=== PATIENT | male | born 2000 | race Caucasian/White ===

== ENCOUNTER 2018-07-04 23:25 | Emergency (ER) | payer OTHER ==
--- NOTE | 2018-07-05 02:58 | XR ---
EXAM: XR Soft Tissue Neck CLINICAL HISTORY: ITS.REASON XR Reason: Pain TECHNIQUE: Frontal and lateral views of the soft tissues of the neck. COMPARISON: No relevant prior studies available. FINDINGS: Airway: Unremarkable. No abnormal narrowing. Bones/joints: No acute fracture. No dislocation. Soft tissues: Unremarkable. No abnormal soft tissue prominence. Normal epiglottis. IMPRESSION: Unremarkable neck x-rays.
--- NOTE | 2018-07-05 03:39 | ED ---
General Adult HPI - General Source: patient, RN notes reviewed, old records reviewed Mode of arrival: ambulatory Limitations: no limitations <Adonis Dickey - Last Filed: 07/05/18 05:05> <Elizabeth Anna - Last Filed: 07/05/18 08:15> - General Chief complaint: ENT Stated complaint: Trouble Swallowing Time Seen by Provider: 07/05/18 02:01 - History of Present Illness Initial comments: 17-year-old male patient no pertinent past medical history presents to ED with approximately 3 weeks of sensation of things getting stuck with that while swallowing. Patient denies any pain. Patient has been able to tolerate by mouth intake and liquid. Patient denies any regurgitation. Patient denies any shortness of breath, difficulty breathing. Patient denies any abdominal pain, chest pain, shortness of breath. Patient denies other complaints. Systemic: Pt denies fatigue, myalgia, fever/chills, rash. Pt denies weakness, night sweats, weight loss. Neuro: Pt denies headache, visual disturbances, syncope or pre-syncope. HEENT: Pt denies ocular discharge or irritation, otalgia, rhinorrhea, pharyngitis or notable lymphadenopathy. Cardiopulmonary: Pt denies chest pain, SOB, heart palpitations, dyspnea on exertion. Abdominal/GI: Pt denies abdominal pain, n/v/d. : Pt denies dysuria, burning w/ urination, frequency/urgency. Denies new onset urinary or bowel incontinence. MSK: Pt denies myalgia, loss of strength or function in extremities. Neuro: Pt denies new onset weakness, paresthesias. (Adonis Dickey) - Related Data Previous Rx's Medication Instructions Recorded Loratadine [Alavert] 10 mg PO DAILY PRN #30 tab 05/18/15 Albuterol Inhaler [Ventolin Hfa 1 - 2 puff INHALATION Q4-6H PRN #1 02/17/16 Inhaler] inhaler Albuterol Inhaler [Ventolin Hfa 2 puff INHALATION Q6HR #1 inhaler 04/24/16 Inhaler] Azithromycin [Zithromax] 500 mg PO DAILY #3 tab 04/24/16 methylPREDNISolone Dose Pack 4 mg PO DIRECTED #21 package 04/24/16 [Medrol Dose Pack] Allergies Allergy/AdvReac Type Severity Reaction Status Date / Time No Known Allergies Allergy Verified 07/04/18 23:31 Review of Systems ROS Other: All systems not noted in ROS Statement are negative. <Adonis Dickey - Last Filed: 07/05/18 05:05> ROS Other: All systems not noted in ROS Statement are negative. <Elizabeth Anna - Last Filed: 07/05/18 08:15> ROS Statement: Those systems with pertinent positive or pertinent negative responses have been documented in the HPI. Past Medical History Past Medical History: Asthma Additional Past Medical History / Comment(s): hydrocephalus History of Any Multi-Drug Resistant Organisms: None Reported Past Surgical History: No Surgical Hx Reported Past Anesthesia/Blood Transfusion Reactions: No Reported Reaction Past Psychological History: No Psychological Hx Reported Smoking Status: Current some day smoker Past Alcohol Use History: None Reported Past Drug Use History: None Reported - Past Family History Mother Family Medical History: Asthma Additional Family Medical History / Comment(s): colitis, scoliosis, bipolar manic depressive, ADHD, anxiety <NobleAdonis Flynn - Last Filed: 07/05/18 05:05> General Exam Limitations: no limitations <NobleAdonis Flynn - Last Filed: 07/05/18 05:05> <Elizabeth Anna P - Last Filed: 07/05/18 08:15> - General Exam Comments Initial Comments: Constitutional: NAD, AOX3, Pt has pleasant affect. HEENT: NC/AT, trachea midline, neck supple, no lymphadenopathy. Posterior pharynx non erythematous, without exudates. External ears appear normal, without discharge. Mucous membranes moist. Eyes PERRLA, EOM intact. There is no scleral icterus. No pallor noted. Cardiopulmonary: RRR, no murmurs, rubs or gallops, no JVD noted. Lungs CTAB in anterior and posterior jaeger. No peripheral edema. Abdominal exam: Abdomen soft and non-distended. Abdomen non-tender to palpation in all 4 quadrants. Bowel sounds active in LLQ. No hepatosplenomegaly. No ecchymosis Neuro: CN II-XII grossly intact. No nuchal rigidity. MSK: No posterior calf tenderness bilaterally, homans sign negative bilaterally. Posterior tibialis and radial pulse +2 bilaterally. Sensation intact in upper and lower extremities. Full active ROM in upper and lower extremities, 5/5 stregnth. (Adonis Dickey) Vital Signs 07/04/18 07/05/18 23:28 03:46 Temperature 98.4 F 98.7 F Pulse Rate 68 69 Respiratory 16 17 Rate Blood Pressure 141/72 128/60 O2 Sat by Pulse 99 98 Oximetry Medical Decision Making <Adonis Dickey - Last Filed: 07/05/18 05:05> <Elizabeth Anna - Last Filed: 07/05/18 08:15> - Medical Decision Making 17-year-old male patient no pertinent past medical history presents to ED with approximately 3 weeks of sensation of things getting stuck with that while swallowing. Patient denies any pain. Patient has been able to tolerate by mouth intake and liquid. Patient denies any regurgitation. Patient denies any shortness of breath, difficulty breathing. Patient denies any abdominal pain, chest pain, shortness of breath. Patient denies other complaints. Pt VSS, afebrile. Physical exam didn't display acute pathology. Laboratory investigations revealed negative group A strep swab. Plain film of soft tissue neck did not display acute pathology. Patient able to tolerate by mouth intake in ED. Patient to follow up with ENT as well as PCP. Patient to return to ED if new signs or symptoms develop or if condition worsens in anyway. Case discussed with Dr. Anna. (Adonis Dickey) I was available for consultation in the emergency department. The history and physical exam were done by the midlevel provider. I was consulted for this patient's care. I reviewed the case with the midlevel provider and based on their presentation of the patient, I agree with the assessment, medical decision making and plan of care as documented. (Elizabeth Anna) - Lab Data Lab Results 07/05/18 Range/Units 02:00 Group A Strep Rapid Negative (Negative) Disposition Is patient prescribed a controlled substance at d/c from ED?: No <Adonis Dickey - Last Filed: 07/05/18 05:05> <Elizabeth Anna - Last Filed: 07/05/18 08:15> Clinical Impression: Throat discomfort Disposition: HOME SELF-CARE Condition: Stable Instructions (If sedation given, give patient instructions): Soft Diet (ED) Additional Instructions: Patient to adhere to previously discussed treatment plan and will take medication(s) as directed. Patient to follow up with PCP in 1-2 days. Patient to return to ED if symptoms do not improve. Please follow-up with primary care physician one to 2 days. Please call ear nose and throat specialists tomorrow. Patient return to ED if condition worsens in anyway. Referrals: Jamey Silva MD [Primary Care Provider] - 1-2 days Ace Causey MD [STAFF PHYSICIAN] - 1-2 days
[2018-07-05 03:51] VITALS: BP 128/60; PULSE 69; RESP 17; TEMP 98.7
== END 2018-07-05 03:47 | disposition home or self-care (01) ==
LOC: EC 23:25
DX: R09.89 Other specified symptoms and signs involving the circulatory and respiratory systems (principal); F17.200 Nicotine dependence, unspecified, uncomplicated
CPT/HCPCS: 70360; 87081; 87430; 99284

== ENCOUNTER 2021-06-10 13:38 | Emergency (ER) | payer OTHER ==
[2021-06-10 13:43] VITALS: BP 127/69; PULSE 61; RESP 20; TEMP 98.6
--- NOTE | 2021-06-10 14:17 | CT ---
EXAMINATION TYPE: CT brain wo con DATE OF EXAM: 06/10/2021 COMPARISON: None HISTORY: 20-year-old male HEADACHE TECHNIQUE: Examination was done in axial plane without intravenous contrast. Coronal and sagittal r econstructions performed. CT DLP: 1071.4 mGycm Automated exposure control for dose reduction was used. FINDINGS: There is no evidence of acute intracranial hemorrhage, acute ischemic changes, mass, mass-effect, or extra-axial fluid collection. There is no effacement of cerebral sulci or basal subarachnoid cister ns. There is no hydrocephalus. There is no midline shift. Julian-white matter distinction is preserv ed. Previous FESS. Residual moderate to severe mucosal thickening ethmoid air cells and mild within the s phenoid sinuses. Mastoid air cells are well pneumatized. Orbits and globes appear intact. IMPRESSION: 1. No acute intracranial abnormality seen. 2. Previous FESS but with residual moderate to severe mucosal thickening throughout the ethmoid air c ells and mild within the sphenoid sinuses.
--- NOTE | 2021-06-10 14:18 | ED ---
General Adult HPI - General Chief complaint: Headache Stated complaint: Headache/Dizziness Time Seen by Provider: 06/10/21 13:45 Source: patient, RN notes reviewed, old records reviewed Mode of arrival: ambulatory Limitations: no limitations - History of Present Illness Initial comments: 20-year-old male presenting for evaluation of headache , patient was seen by primary care physician and had laboratory testing performed. He continues to have a headache on the top of his head which is intermittent. He denies focal numbness or weakness. He states he was at a job interview earlier today and had an episode of blurry vision. This is resolved. No fever. No cough or URI symptoms. No vomiting or photophobia. - Related Data Previous Rx's Medication Instructions Recorded Loratadine [Alavert] 10 mg PO DAILY PRN #30 tab 05/18/15 Albuterol Inhaler (Mhu) [Ventolin 1 - 2 puff INHALATION Q4-6H PRN #1 02/17/16 Hfa Inhaler (Mhu)] inhaler Albuterol Inhaler (Mhu) [Ventolin 2 puff INHALATION Q6HR #1 inhaler 04/24/16 Hfa Inhaler] Azithromycin [Zithromax] 500 mg PO DAILY #3 tab 04/24/16 methylPREDNISolone Dose Pack 4 mg PO DIRECTED #21 package 04/24/16 [Medrol Dose Pack] Allergies Allergy/AdvReac Type Severity Reaction Status Date / Time No Known Allergies Allergy Verified 06/10/21 13:43 Review of Systems ROS Statement: Those systems with pertinent positive or pertinent negative responses have been documented in the HPI. ROS Other: All systems not noted in ROS Statement are negative. Past Medical History Past Medical History: Asthma Additional Past Medical History / Comment(s): hydrocephalus History of Any Multi-Drug Resistant Organisms: None Reported Past Surgical History: No Surgical Hx Reported Past Anesthesia/Blood Transfusion Reactions: No Reported Reaction Past Psychological History: No Psychological Hx Reported Smoking Status: Never smoker Past Alcohol Use History: None Reported Past Drug Use History: None Reported - Past Family History Mother Family Medical History: Asthma Additional Family Medical History / Comment(s): colitis, scoliosis, bipolar manic depressive, ADHD, anxiety General Exam Limitations: no limitations General appearance: alert, in no apparent distress Head exam: Present: atraumatic, normocephalic Eye exam: Present: normal appearance, PERRL, EOMI ENT exam: Present: normal exam Neck exam: Present: normal inspection. Absent: tenderness, meningismus Respiratory exam: Present: normal lung sounds bilaterally. Absent: respiratory distress, wheezes Cardiovascular Exam: Present: regular rate, normal rhythm GI/Abdominal exam: Present: soft. Absent: distended, tenderness, guarding Extremities exam: Present: normal inspection, normal capillary refill. Absent: pedal edema, calf tenderness Neurological exam: Present: alert, oriented X3, CN II-XII intact. Absent: motor sensory deficit Psychiatric exam: Present: normal affect, normal mood Skin exam: Present: warm, dry, intact. Absent: cyanosis, diaphoretic Course Vital Signs 06/10/21 13:41 Temperature 98.6 F Pulse Rate 61 Respiratory 20 Rate Blood Pressure 127/69 O2 Sat by Pulse 100 Oximetry Medical Decision Making - Medical Decision Making 20-year-old male presenting for evaluation of intermittent headache. Patient had a previous history of hydrocephalus. This was as a child. No other alarming features on history or physical exam. Patient well-appearing with a normal neurologic exam. I did perform CT imaging which is negative for acute intracranial process. I do recommend patient continue to follow up with his primary care physician and if symptoms persist he may require further imaging or evaluation by neurology. Disposition Clinical Impression: Headache Disposition: HOME SELF-CARE Condition: Good Instructions (If sedation given, give patient instructions): Acute Headache (ED) Additional Instructions: Please follow up with her primary care physician. If symptoms persist. Please follow up with neurology. Is patient prescribed a controlled substance at d/c from ED?: No Referrals: None,Stated [Primary Care Provider] - 1-2 days Yrn Muñoz MD [STAFF PHYSICIAN] - 1-2 days Time of Disposition:
== END 2021-06-10 14:47 | disposition home or self-care (01) ==
LOC: EC 13:38
DX: R51.9 Headache, unspecified (principal); J45.909 Unspecified asthma, uncomplicated; Z79.899 Other long term (current) drug therapy
CPT/HCPCS: 70450; 99284

== ENCOUNTER 2021-09-08 09:56 | Observation (INO) | payer OTHER ==
[2021-09-08] MEDS ORDERED: SODIUM CHLORIDE 0.9% 1,000 ML IV STA (10:29)
[2021-09-08] MEDS ORDERED: ONDANSETRON 4 MG/2 ML VIAL IVP STA (10:29)
--- NOTE | 2021-09-08 10:52 | ED ---
General Adult HPI - General Chief complaint: Abdominal Pain Stated complaint: abd pain Time Seen by Provider: 09/08/21 10:07 Source: patient Mode of arrival: ambulatory Limitations: no limitations - History of Present Illness Initial comments: This 21-year-old male presents emergency Department with generalized abdominal discomfort 2 weeks, radiating to right lower quadrant last night. Patient states over the last 2 weeks he has had generalized abdominal discomfort that seems to come and go. He states last night he began to experience sharp stabb ing pains in his right lower quadrant. He states his stabbing pain seemed to come and go but states there is always a dull aching pain in the area. Patient states when lying flat or touching his right lower quadrant seems worsen his pain. Patient states his pain is currently 6/10 but does get up to 8/10 when the aching pain becomes sharp. Patient states her last couple of days his stool has been harder than before, however he states he did have a bowel movement today that was normal. Patient denies any hematochezia or hemoptysis. Patient denies the pain radiating anywhere. He denies taking any pain medication to help his symptoms. Patient states he has had a decreased appetite over the last couple of weeks and states over the last 2 days he began to feel nauseous. He denies any vomiting, fever, diarrhea.Patient denies any chest pain, shortness of breath, change in bowel or bladder, back pain, change in vision, lightheadedness, dizziness, rash. Patient denies alcohol or drug use. - Related Data Home Medications Medication Instructions Recorded Confirmed No Known Home Medications 09/08/21 09/08/21 Allergies Allergy/AdvReac Type Severity Reaction Status Date / Time No Known Allergies Allergy Verified 09/08/21 10:38 Review of Systems ROS Statement: Those systems with pertinent positive or pertinent negative responses have been documented in the HPI. ROS Other: All systems not noted in ROS Statement are negative. Past Medical History Past Medical History: Asthma Additional Past Medical History / Comment(s): hydrocephalus History of Any Multi-Drug Resistant Organisms: None Reported Past Surgical History: No Surgical Hx Reported Past Anesthesia/Blood Transfusion Reactions: No Reported Reaction Past Psychological History: No Psychological Hx Reported Smoking Status: Vaper Past Alcohol Use History: Occasional Past Drug Use History: None Reported - Past Family History Mother Family Medical History: Asthma Additional Family Medical History / Comment(s): colitis, scoliosis, bipolar manic depressive, ADHD, anxiety General Exam Limitations: no limitations General appearance: alert, in no apparent distress Head exam: Present: atraumatic, normocephalic, normal inspection Eye exam: Present: normal appearance, PERRL, EOMI. Absent: scleral icterus, conjunctival injection, periorbital swelling Pupils: Present: normal accommodation ENT exam: Present: normal exam, mucous membranes moist Neck exam: Present: normal inspection, full ROM. Absent: tenderness, meningismus, lymphadenopathy Respiratory exam: Present: normal lung sounds bilaterally. Absent: respiratory distress, wheezes, rales, rhonchi, stridor, chest wall tenderness, decreased breath sounds Cardiovascular Exam: Present: regular rate, normal rhythm, normal heart sounds. Absent: systolic murmur, diastolic murmur, rubs, gallop, clicks GI/Abdominal exam: Present: soft, tenderness (Right lower quadrant tenderness to palpation. Positive McBurney's point, positive Rovsing sign, positive obturator sign. Negative Carlson sign.), normal bowel sounds. Absent: distended, guar ding, rebound, rigid Extremities exam: Present: normal inspection, full ROM, normal capillary refill. Absent: tenderness, pedal edema, joint swelling, calf tenderness Back exam: Present: normal inspection, full ROM. Absent: CVA tenderness (R), CVA tenderness (L), paraspinal tenderness, vertebral tenderness Neurological exam: Present: alert, oriented X3, CN II-XII intact Psychiatric exam: Present: normal affect, normal mood Skin exam: Present: warm, dry, intact, normal color. Absent: rash Course Vital Signs 09/08/21 09/08/21 10:00 11:42 Temperature 98.1 F Pulse Rate 55 L 76 Respiratory 22 18 Rate Blood Pressure 145/76 124/78 O2 Sat by Pulse 97 98 Oximetry Medical Decision Making - Medical Decision Making This 21-year-old male comes to the emergency department with acute appendicitis. Patient states he has had generalized abdominal discomfort over the last 2 weeks. He states right lower quadrant pain began last night. Patient states he has not eaten since before midnight last night. He states he did drink a little bit water around 8:00 AM. Patients labs with white blood cell count 12.8. Calcium 8.2, urine with trace blood. CT abdomen and pelvis with contrast impression: Prominent to the structure right lower quadrant measuring 8 mm with a thickened wall and very mild adjacent inflammatory changes are suspicious for early appendicitis. There is a small amount of free fluid in the pelvis. There is in attenuation which could represent partial volume averaging with collapse bowel. Cannot exclude a tiny phlegmon or abscess on the scan. Gallbladder hydrops with no definite gallstone. Spoke with who agreed to admit patient to his services. He requested I keep patient nothing by mouth. I did send patient on IV Zosyn. Patient readily agreed to be admitted to the hospital for further workup, evaluation and treatment. I did discuss surgery with the patient and he is agreeable to plan. Discussed case in detail my attending, . - Lab Data Result diagrams: 09/08/21 11:02 09/08/21 11:02 Lab Results 09/08/21 09/08/21 09/08/21 Range/Units 11:02 11:02 11:02 WBC 12.8 H (3.8-10.6) k/uL RBC 5.05 (4.30-5.90) m/uL Hgb 14.6 (13.0-17.5) gm/dL Hct 45.4 (39.0-53.0) % MCV 89.8 (80.0-100.0) fL MCH 28.8 (25.0-35.0) pg MCHC 32.1 (31.0-37.0) g/dL RDW 11.6 (11.5-15.5) % Plt Count 179 (150-450) k/uL MPV 8.1 Neutrophils % 82 % Lymphocytes % 9 % Monocytes % 5 % Eosinophils % 4 % Basophils % 1 % Neutrophils # 10.5 H (1.3-7.7) k/uL Lymphocytes # 1.1 (1.0-4.8) k/uL Monocytes # 0.6 (0-1.0) k/uL Eosinophils # 0.5 (0-0.7) k/uL Basophils # 0.1 (0-0.2) k/uL PT 11.3 (9.0-12.0) sec INR 1.0 (<1.2) APTT 26.7 (22.0-30.0) sec Sodium 139 (137-145) mmol/L Potassium 3.6 (3.5-5.1) mmol/L Chloride 108 H (98-107) mmol/L Carbon Dioxide 26 (22-30) mmol/L Anion Gap 5 mmol/L BUN 11 (9-20) mg/dL Creatinine 0.72 (0.66-1.25) mg/dL Est GFR (CKD-EPI)AfAm >90 (>60 ml/min/1.73 sqM) Est GFR (CKD-EPI)NonAf >90 (>60 ml/min/1.73 sqM) Glucose 87 (74-99) mg/dL Calcium 8.2 L (8.4-10.2) mg/dL Total Bilirubin 1.3 (0.2-1.3) mg/dL AST 21 (17-59) U/L ALT 15 (4-49) U/L Alkaline Phosphatase 66 (38-126) U/L Total Protein 7.2 (6.3-8.2) g/dL Albumin 4.1 (3.5-5.0) g/dL Amylase 64 (30-110) U/L Lipase 38 (23-300) U/L Urine Color Urine Appearance (Clear) Urine pH (5.0-8.0) Ur Specific [place] (1.001-1.035) Urine Protein (Negative) Urine Glucose (UA) (Negative) Urine Ketones (Negative) Urine Blood (Negative) Urine Nitrite (Negative) Urine Bilirubin (Negative) Urine Urobilinogen (<2.0) mg/dL Ur Leukocyte Esterase (Negative) Urine RBC (0-5) /hpf Urine WBC (0-5) /hpf Ur Squamous Epith Cells (0-4) /hpf Urine Mucus (None) /hpf 09/08/21 Range/Units 11:42 WBC (3.8-10.6) k/uL RBC (4.30-5.90) m/uL Hgb (13.0-17.5) gm/dL Hct (39.0-53.0) % MCV (80.0-100.0) fL MCH (25.0-35.0) pg MCHC (31.0-37.0) g/dL RDW (11.5-15.5) % Plt Count (150-450) k/uL MPV Neutrophils % % Lymphocytes % % Monocytes % % Eosinophils % % Basophils % % Neutrophils # (1.3-7.7) k/uL Lymphocytes # (1.0-4.8) k/uL Monocytes # (0-1.0) k/uL Eosinophils # (0-0.7) k/uL Basophils # (0-0.2) k/uL PT (9.0-12.0) sec INR (<1.2) APTT (22.0-30.0) sec Sodium (137-145) mmol/L Potassium (3.5-5.1) mmol/L Chloride (98-107) mmol/L Carbon Dioxide (22-30) mmol/L Anion Gap mmol/L BUN (9-20) mg/dL Creatinine (0.66-1.25) mg/dL Est GFR (CKD-EPI)AfAm (>60 ml/min/1.73 sqM) Est GFR (CKD-EPI)NonAf (>60 ml/min/1.73 sqM) Glucose (74-99) mg/dL Calcium (8.4-10.2) mg/dL Total Bilirubin (0.2-1.3) mg/dL AST (17-59) U/L ALT (4-49) U/L Alkaline Phosphatase (38-126) U/L Total Protein (6.3-8.2) g/dL Albumin (3.5-5.0) g/dL Amylase (30-110) U/L Lipase (23-300) U/L Urine Color Yellow Urine Appearance Clear (Clear) Urine pH 7.5 (5.0-8.0) Ur Specific [place] 1.020 (1.001-1.035) Urine Protein Negative (Negative) Urine Glucose (UA) Negative (Negative) Urine Ketones Negative (Negative) Urine Blood Trace H (Negative) Urine Nitrite Negative (Negative) Urine Bilirubin Negative (Negative) Urine Urobilinogen <2.0 (<2.0) mg/dL Ur Leukocyte Esterase Negative (Negative) Urine RBC 6 H (0-5) /hpf Urine WBC 1 (0-5) /hpf Ur Squamous Epith Cells <1 (0-4) /hpf Urine Mucus Rare H (None) /hpf Disposition Clinical Impression: Acute appendicitis, Leukocytosis Disposition: ADMITTED IP TO THIS [facility] Condition: Serious Referrals: None,Stated [Primary Care Provider] - 1-2 days
[2021-09-08 11:12] LABS: Basophils # (A) 0.1 k/uL (0-0.2); Basophils % (A) 1 %; Eosinophils # (A) 0.5 k/uL (0-0.7); Eosinophils % (A) 4 %; HCT 45.4 % (39.0-53.0); HGB 14.6 gm/dL (13.0-17.5); Lymphocytes # (A) 1.1 k/uL (1.0-4.8); Lymphocytes % (A) 9 %; MCH 28.8 pg (25.0-35.0); MCHC 32.1 g/dL (31.0-37.0); MCV 89.8 fL (80.0-100.0); Mean Platelet Volume 8.1; Monocytes # (A) 0.6 k/uL (0-1.0); Monocytes % (A) 5 %; Neutrophils # (A) 10.5 k/uL (1.3-7.7); Neutrophils % (A) 82 %; Platelet Count 179 k/uL (150-450); RBC 5.05 m/uL (4.30-5.90); RDW 11.6 % (11.5-15.5); WBC 12.8 k/uL (3.8-10.6)
[2021-09-08 11:20] LABS: ALT 15 U/L (4-49); AST 21 U/L (17-59); African American GFR (CKD) >90 (>60 ml/min/1.73 sqM); Albumin 4.1 g/dL (3.5-5.0); Alkaline Phosphatase 66 U/L (38-126); Amylase 64 U/L (30-110); Anion Gap 5 mmol/L; Blood Urea Nitrogen 11 mg/dL (9-20); Calcium 8.2 mg/dL (8.4-10.2); Carbon Dioxide 26 mmol/L (22-30); Chloride 108 mmol/L (98-107); Glucose 87 mg/dL (74-99); Lipase 38 U/L (23-300); Non-African American GFR(CKD) >90 (>60 ml/min/1.73 sqM); Potassium 3.6 mmol/L (3.5-5.1); Sodium 139 mmol/L (137-145); Total Bilirubin 1.3 mg/dL (0.2-1.3); Total Protein 7.2 g/dL (6.3-8.2)
[2021-09-08 11:37] LABS: Partial Thromboplastin Time 26.7 sec (22.0-30.0); Prothrombin Time 11.3 sec (9.0-12.0)
[2021-09-08 12:17] LABS: Appearance,Urine Clear (Clear); Bilirubin,Urine Negative (Negative); Blood,Urine Trace (Negative); Color,Urine Yellow; Glucose,Urine (UA) Negative (Negative); Ketones,Urine Negative (Negative); Leukocyte Esterase,Urine Negative (Negative); Mucus,Urine Rare /hpf; Nitrite,Urine Negative (Negative); PH, Urine 7.5 (5.0-8.0); Protein,Urine Negative (Negative); RBC,Urine 6 /hpf (0-5); Squamous Epithelial Cell,Urine <1 /hpf (0-4); Urobilinogen,Urine <2.0 mg/dL (<2.0); WBC,Urine 1 /hpf (0-5)
--- NOTE | 2021-09-08 12:27 | CT ---
EXAMINATION TYPE: CT abdomen pelvis w con DATE OF EXAM: 09/08/2021 COMPARISON: None HISTORY: RLQ abdominal pain and nausea. CT DLP: 573.1 mGycm Automated exposure control for dose reduction was used. CONTRAST: CT scan of the abdomen pelvis is performed with IV Contrast, patient injected with 100ml mL of Isovue 300. FINDINGS- LUNG BASES- No significant abnormality is appreciated. LIVER/GB-gallbladder size correlate for gallbladder hydrops.. PANCREAS- No gross abnormality is seen. SPLEEN- No gross abnormality is seen. ADRENALS- No gross abnormality is seen. KIDNEYS/BLADDER- no hydronephrosis nephrolithiasis or renal mass. BOWEL-prominent tubular structure in the right lower quadrant measuring 8 mm suspicious for a dilated appendix. Correlate for appendicitis. Vague density on axial image 59 likely represents partial volu me averaging with bowel rather than phlegmon or a tiny developing abscess. There is no definite free air. There is a small amount of free fluid in the pelvis.. LYMPH NODES- No greater than 1cm abdominal or pelvic lymph nodes areappreciated. OSSEOUS STRUCTURES- No significant abnormality is seen. OTHER- small amount of free fluid in the pelvis. Calcifications in the pelvis are likely vascular. IMPRESSION- 1. Prominent tubular structure right lower quadrant measuring 8 mm with a thickened wall and very mil d adjacent inflammatory changes are suspicious for early appendicitis. There is a small amount of marcello e fluid in the pelvis. On image 59 there is a next attenuation which could represent partial volume a veraging with collapsed bowel. Could not exclude a tiny phlegmon or abscess on this scan. 2. Gallbladder hydrops with no definite gallstone.
[2021-09-08] MEDS ORDERED: ACETAMINOPHEN TAB 325 MG TAB PO PRN (12:44)
[2021-09-08] MEDS ORDERED: MORPHINE SULFATE 2 MG/ML SYRINGE IV PRN (12:44)
[2021-09-08] MEDS ORDERED: NALOXONE 0.4 MG/ML 1 ML VIAL IV PRN (12:44)
[2021-09-08] MEDS ORDERED: ONDANSETRON 4 MG/2 ML VIAL IVP PRN (12:44)
[2021-09-08] MEDS ORDERED: PIPERACILLIN-TAZOBACTAM 3.375 GM in SODIUM CHLORIDE 0.9% 100 ML IVPB SCH (12:45)
[2021-09-08] MEDS ORDERED: PIPERACILLIN-TAZOBACTAM 3.375 GM in SODIUM CHLORIDE 0.9% 100 ML IVPB ONE (12:45)
--- NOTE | 2021-09-08 13:37 | P.GSHP ---
History of Present Illness H&P Date: 09/08/21 CHIEF COMPLAINT: Abdominal pain HISTORY OF PRESENT ILLNESS: This is a 21-year-old male who presented with right lower quadrant abdominal pain that started yesterday evening. Patient reports that he had difficulty sleeping he kept waking up due to the sharp pain in the right lower quadrant. He admits to having nausea and no vomiting. Patient does report the pain has been intermittent. He reports that the pain has decreased greatly since coming into the ER. Patient does report having bowel movements. He states that he had no relief in his pain with the bowel movement. He denies any fever. Admits to chills. Computed tomography scan abdomen and pelvis shows prominent tubular structure right lower quadrant measuring 8 mm with a thickened wall and very mild adjacent inflammatory changes are suspicious for early appendicitis. There is a small amount of free fluid in the pelvis. Attenuation which could represent partial volume averaging with collapse bowel. Cannot exclude tiny phlegmon or abscess on the scan. Patient also reports feeling slightly bloated. PAST MEDICAL HISTORY: Asthma, hydrocephalus PAST SURGICAL HISTORY: none MEDICATIONS: See list. ALLERGIES: See list. SOCIAL HISTORY: No illicit drug use. REVIEW OF SYSTEMS: CONSTITUTIONAL: Denies fever or chills. HEENT: Denies blurred vision, vision changes, or eye pain. Denies hemoptysis CARDIOVASCULAR: Denies chest pain or pressure. RESPIRATORY: No shortness of breath. GASTROINTESTINAL: See HPI for pertinent findings HEMATOLOGIC: Denies bleeding disorders. GENITOURINARY: Denies any blood in urine or increased urinary frequency. SKIN: Denies pruitis. Denies rash. PHYSICAL EXAM: VITAL SIGNS: Reviewed GENERAL: Well-developed in no acute distress. HEENT: No sclera icterus. Extraocular movements grossly intact. Moist buccal mucosa. Head is atraumatic, normocephalic. No nasal drainage. ABDOMEN: Soft. Distended. Right lower quadrant tenderness with palpation NEUROLOGIC: Alert and oriented. Cranial nerves II through XII grossly intact. LABORATORY DATA: WBC 12.8 hemoglobin 14.6 platelets 179 INR 1.0 Sodium 19 potassium 3.6 creatinine 0.7 to LFTs normal lipase 38 IMAGING: Computed tomography scan abdomen and pelvis shows prominent tubular structure right lower quadrant measuring 8 mm with a thickened wall and very mild adjacent inflammatory changes are suspicious for early appendicitis. There is a small amount of free fluid in the pelvis. Attenuation which could represent partial volume averaging with collapse bowel. Cannot exclude tiny phlegmon or abscess on the scan. Gallbladder hydrops with no definite gallstone ASSESSMENT: 1. Acute appendicitis PLAN: -Patient scheduled for laparoscopic appendectomy today with Dr. martinez -Keep patient nothing by mouth -Continue IV antibiotics -continue pain medication as needed Physician Transmitter Supervisor note has been reviewed by physician. Signing provider agrees with the documented findings, assessment, and plan of care. Past Medical History Past Medical History: Asthma Additional Past Medical History / Comment(s): hydrocephalus History of Any Multi-Drug Resistant Organisms: None Reported Past Surgical History: No Surgical Hx Reported Past Anesthesia/Blood Transfusion Reactions: No Reported Reaction Past Psychological History: No Psychological Hx Reported Smoking Status: Vaper Past Alcohol Use History: Occasional Past Drug Use History: None Reported - Past Family History Mother Family Medical History: Asthma Additional Family Medical History / Comment(s): colitis, scoliosis, bipolar ma rochelle depressive, ADHD, anxiety Medications and Allergies Home Medications Medication Instructions Recorded Confirmed Type No Known Home Medications 09/08/21 09/08/21 History Allergies Allergy/AdvReac Type Severity Reaction Status Date / Time No Known Allergies Allergy Verified 09/08/21 10:38 Surgical - Exam Vital Signs Temp Pulse Resp BP Pulse Ox 98.1 F 55 L 22 145/76 97 09/08/21 10:00 09/08/21 10:00 09/08/21 10:00 09/08/21 10:00 09/08/21 10:00 Results - Labs 09/08/21 11:02 09/08/21 11:02 Abnormal Lab Results - Last 24 Hours (Table) 09/08/21 09/08/21 09/08/21 Range/Units 11:02 11:02 11:42 WBC 12.8 H (3.8-10.6) k/uL Neutrophils # 10.5 H (1.3-7.7) k/uL Chloride 108 H (98-107) mmol/L Calcium 8.2 L (8.4-10.2) mg/dL Urine Blood Trace H (Negative) Urine RBC 6 H (0-5) /hpf Urine Mucus Rare H (None) /hpf Diabetes panel 09/08/21 Range/Units 11:02 Sodium 139 (137-145) mmol/L Potassium 3.6 (3.5-5.1) mmol/L Chloride 108 H (98-107) mmol/L Carbon Dioxide 26 (22-30) mmol/L BUN 11 (9-20) mg/dL Creatinine 0.72 (0.66-1.25) mg/dL Glucose 87 (74-99) mg/dL Calcium 8.2 L (8.4-10.2) mg/dL AST 21 (17-59) U/L ALT 15 (4-49) U/L Alkaline Phosphatase 66 (38-126) U/L Total Protein 7.2 (6.3-8.2) g/dL Albumin 4.1 (3.5-5.0) g/dL Calcium panel 09/08/21 Range/Units 11:02 Calcium 8.2 L (8.4-10.2) mg/dL Albumin 4.1 (3.5-5.0) g/dL Pituitary panel 09/08/21 Range/Units 11:02 Sodium 139 (137-145) mmol/L Potassium 3.6 (3.5-5.1) mmol/L Chloride 108 H (98-107) mmol/L Carbon Dioxide 26 (22-30) mmol/L BUN 11 (9-20) mg/dL Creatinine 0.72 (0.66-1.25) mg/dL Glucose 87 (74-99) mg/dL Calcium 8.2 L (8.4-10.2) mg/dL Adrenal panel 09/08/21 Range/Units 11:02 Sodium 139 (137-145) mmol/L Potassium 3.6 (3.5-5.1) mmol/L Chloride 108 H (98-107) mmol/L Carbon Dioxide 26 (22-30) mmol/L BUN 11 (9-20) mg/dL Creatinine 0.72 (0.66-1.25) mg/dL Glucose 87 (74-99) mg/dL Calcium 8.2 L (8.4-10.2) mg/dL Total Bilirubin 1.3 (0.2-1.3) mg/dL AST 21 (17-59) U/L ALT 15 (4-49) U/L Alkaline Phosphatase 66 (38-126) U/L Total Protein 7.2 (6.3-8.2) g/dL Albumin 4.1 (3.5-5.0) g/dL
[2021-09-08] MEDS: SODIUM CHLORIDE 0.9% 1,000 ML IV SCH ×2 (14:23→22:07)
[2021-09-08] MEDS ORDERED: LACTATED RINGERS 1,000 ML IV ONE ×2 (16:45→18:28)
[2021-09-08] MEDS ORDERED: IV FLUID CONTINUATION 1,000 ML IV ONE (16:45)
[2021-09-08] MEDS ORDERED: HEPARIN SODIUM,PORCINE/PF 5,000 UNIT/0.5 ML SYRINGE SQ ONE (16:56)
[2021-09-08] MEDS ORDERED: ONDANSETRON 4 MG/2 ML VIAL IVP ONE (17:06)
[2021-09-08] MEDS ORDERED: BUPIVACAIN-EPI 0.25%-1:200,000 30 ML VIAL SQ ONE ×2 (17:38→18:27)
[2021-09-08] MEDS ORDERED: SUCCINYLCHOLINE CHLORIDE 100 MG/5 ML SYR IV ONE (18:07)
[2021-09-08] MEDS ORDERED: GLYCOPYRROLATE 0.2 MG/ML 2 ML VIAL ONE (18:07)
[2021-09-08] MEDS ORDERED: ROCURONIUM 10 MG/ML (5 ML VIAL) IV ONE (18:07)
[2021-09-08] MEDS ORDERED: PROPOFOL 10 MG/ML 20 ML VIAL IV ONE (18:07)
[2021-09-08] MEDS ORDERED: KETOROLAC 15 MG/ML 1 ML VIAL ONE (18:07)
[2021-09-08] MEDS ORDERED: MIDAZOLAM 2 MG/2 ML VIAL ONE (18:07)
[2021-09-08] MEDS ORDERED: fentaNYL (PF) 50 MCG/ML 2 ML AMP ONE (18:07)
[2021-09-08] MEDS ORDERED: NEOSTIGMINE 1 MG/ML 10 ML VIAL ONE (18:07)
[2021-09-08] MEDS ORDERED: LIDOCAINE 2% INJ 20 MG/ML (2 ML VIAL) ONE (18:07)
[2021-09-08] MEDS ORDERED: HYDROmorphone 1 MG/ML 1 ML SYRINGE IVP PRN (18:35)
[2021-09-08] MEDS ORDERED: ONDANSETRON 4 MG TAB PO PRN (18:35)
--- NOTE | 2021-09-08 18:35 | P.OP ---
Date of Procedure: 09/08/21 Preoperative Diagnosis: Acute appendicitis Postoperative Diagnosis: Acute appendicitis Procedure(s) Performed: Laparoscopic appendectomy Anesthesia: LUI Surgeon: Zbigniew Marquez Pathology: other (Appendix) Condition: stable Disposition: PACU Description of Procedure: The patient's placed on the operating table in the supine position. The patient received general anesthesia. The abdomen was prepped and draped in the usual sterile fashion. The skin was anesthetized 1% local Xylocaine at the trocar sites. Using an 11 blade the skin was incised at the umbilicus. The umbilicus was grasped with a Beth clamp and then a Veress needle was placed into the peritoneal cavity. Position of the Veress needle was confirmed with positive drop test. After adequate insufflation a 5 mm trocar was placed into the peritoneal cavity. The abdomen was further insufflated. And then the laparoscope was placed in the peritoneal cavity. Next a 5 mm trocar was placed in the midline suprapubic position. And then a 10 mm trocar was placed in the midline epigastric position. The patient was rotated with the right side up and in Trendelenburg. The appendix was visualized. The appendix appeared to be inflamed. The appendix was grasped and then using the Harmonic scissors the mesoappendix was divided. A PDS Endoloop was then placed around the base of the appendix. And then the appendix was divided using Harmonic scissors. The appendix was placed into an Endo Catch and brought out through the 10 mm trocar site. The abdomen was irrigated. There is no bleeding seen. The trochars withdrawn. The skin was closed interrupted 3-0 Monocryl suture. Dermabond dressing was applied. Patient was sent to recovery room in stable condition.
[2021-09-08] MEDS ORDERED: HYDROmorphone 0.5 MG/0.5 ML SYRINGE IVP ONE (19:09)
[2021-09-08] MEDS ORDERED: HYDROmorphone 1 MG/ML 1 ML SYRINGE IVP ONE (19:10)
[2021-09-08] MEDS: PIPERACILLIN-TAZOBACTAM 3.375 GM in SODIUM CHLORIDE 0.9% 100 ML IVPB SCH (22:07)
[2021-09-09] MEDS: SODIUM CHLORIDE 0.9% 1,000 ML IV SCH ×2 (04:31→13:31)
[2021-09-09] MEDS: PIPERACILLIN-TAZOBACTAM 3.375 GM in SODIUM CHLORIDE 0.9% 100 ML IVPB SCH ×2 (05:14→13:31)
[2021-09-09] MEDS: HYDROcodone/APAP 7.5-325MG 1 EACH TAB PO PRN ×2 (08:59→14:55)
[2021-09-09] MEDS ORDERED: ENOXAPARIN 40 MG/0.4 ML SYRINGE SQ SCH (09:00)
[2021-09-09 11:05] LABS: Basophils % (A) 0 %; Eosinophils # (A) 0.4 k/uL (0-0.7); Eosinophils % (A) 5 %; HCT 44.2 % (39.0-53.0); HGB 14.4 gm/dL (13.0-17.5); Lymphocytes # (A) 1.2 k/uL (1.0-4.8); Lymphocytes % (A) 15 %; MCH 29.8 pg (25.0-35.0); MCHC 32.7 g/dL (31.0-37.0); MCV 91.1 fL (80.0-100.0); Mean Platelet Volume 8.1; Monocytes # (A) 0.5 k/uL (0-1.0); Monocytes % (A) 7 %; Neutrophils # (A) 5.8 k/uL (1.3-7.7); Neutrophils % (A) 72 %; Platelet Count 194 k/uL (150-450); RBC 4.85 m/uL (4.30-5.90); RDW 12.4 % (11.5-15.5)
--- NOTE | 2021-09-09 14:08 | P.DS ---
Providers Date of admission: 09/08/21 12:33 Expected date of discharge: 09/09/21 Attending physician: Zbigniew Maruqez Primary care physician: Stated None Hospital Course: Discharge diagnosis 1. Acute appendicitis status post laparoscopic appendectomy Hospital course This is a 21-year-old male who presented with right lower quadrant abdominal pain. He was found to have evidence of an acute appendicitis. He is status post laparoscopic appendectomy. He tolerated surgery well. His pain is controlled. He is up and ambulating. His heart regular diet. He is having flatus. He is afebrile. He is stable for discharge. Please refer to chart for any further details. Physician Nozzle Tender note has been reviewed by physician. Signing provider agrees with the documented findings, assessment, and plan of care. Patient Condition at Discharge: Stable Plan - Discharge Summary New Discharge Prescriptions: New Amoxicillin/Potassium Clav [Augmentin 875-125 Tablet] 1 tab PO Q12HR 10 Days #20 tab HYDROcodone/APAP 5-325MG [[place] 5-325] 1 tab PO Q6HR PRN 3 Days #12 tab PRN Reason: Pain Discharge Medication List Amoxicillin/Potassium Clav [Augmentin 875-125 Tablet] 1 tab PO Q12HR 10 Days #20 tab 09/09/21 [Rx] HYDROcodone/APAP 5-325MG [[place] 5-325] 1 tab PO Q6HR PRN 3 Days #12 tab 09/09/21 [Rx] Follow up Appointment(s)/Referral(s): None,Stated [Primary Care Provider] - 1-2 days Zbigniew Marquez MD [STAFF PHYSICIAN] - 1 Week Activity/Diet/Wound Care/Special Instructions: No driving while taking [place] No lifting over 10 pounds Shower daily. No soaking or tub baths for 2 weeks Very light activity until you are reevaluated at your follow up appointment with your surgeon Discharge Disposition: HOME SELF-CARE
[2021-09-09 14:32] VITALS: BP 124/65; PULSE 70; RESP 15; TEMP 98.3
== END 2021-09-09 15:18 | disposition home or self-care (01) ==
LOC: EC 09:56 → 6NMEDSUR 12:33
PROVIDERS: ADMIT Surgery; ATTEND Surgery
DX: K35.80 Unspecified acute appendicitis (principal); K82.1 Hydrops of gallbladder; J45.909 Unspecified asthma, uncomplicated; G91.9 Hydrocephalus, unspecified; Z82.5 Family history of asthma and other chronic lower respiratory diseases; Z81.8 Family history of other mental and behavioral disorders; Z83.79 Family history of other diseases of the digestive system; Z82.69 Family history of other diseases of the musculoskeletal system and connective tissue
CPT/HCPCS: 96361; 96374; 99285; 36415; 88304; 80053; 82150; 83605; 83690; 85025 ×2; 85610; 85730; 81001; 74177; 44970; G0378 ×2; J2543 ×2; J2250; J2710; J2405; J1650; J3010; J2270; J1170 ×3; J1885; J0330; J2704; Q9967; J1644; J2001

== ENCOUNTER 2021-09-11 04:57 | Emergency (ER) | payer OTHER ==
[2021-09-11 05:03] VITALS: TEMP 97.6
[2021-09-11] MEDS ORDERED: MORPHINE SULFATE 4 MG/ML SYRINGE IV STA (05:15)
[2021-09-11] MEDS ORDERED: ONDANSETRON 4 MG/2 ML VIAL IVP STA (05:15)
[2021-09-11] MEDS ORDERED: KETOROLAC 15 MG/ML 1 ML VIAL IVP STA (05:15)
[2021-09-11] MEDS ORDERED: SODIUM CHLORIDE 0.9% 1,000 ML IV STA ×2 (05:15)
[2021-09-11] MEDS ORDERED: ACETAMINOPHEN IV (For NPO) 1,000 MG in EMPTY BAG 1 BAG IVPB STA (05:15)
--- NOTE | 2021-09-11 05:16 | ED ---
Fever HPI - General Chief Complaint: Recheck/Abnormal Lab/Rx Stated Complaint: Post-op chills, nausea Source: patient, RN notes reviewed, old records reviewed Mode of arrival: ambulatory Limitations: no limitations - History of Present Illness Initial Comments: this is a 21-year-old male DF for evaluation patient today presents today for evaluation regards to re-eval postoperative appendicitis. Patient feels abdominal pain tingling in his lower extremities tingling in his belly. Mild nausea no vomiting diffuse does not feel exactly well. Patient has felt feverish and chills but has no documented fever. He has not been passing stool and feels like he's been eating well. He is passing gas.after MD Complaint: fever, weakness -: hour(s) Temperature Source: subjective Context: recent procedure Associated Symptoms: chills, myalgias, abdominal pain, nausea Treatments Prior to Arrival: none - Related Data Previous Rx's Medication Instructions Recorded Amoxicillin/Potassium Clav 1 tab PO Q12HR 10 Days #20 tab 09/09/21 [Augmentin 875-125 Tablet] HYDROcodone/APAP 5-325MG [[place] 1 tab PO Q6HR PRN 3 Days #12 tab 09/09/21 5-325] Allergies Allergy/AdvReac Type Severity Reaction Status Date / Time No Known Allergies Allergy Verified 09/11/21 05:03 Review of Systems ROS Statement: Those systems with pertinent positive or pertinent negative responses have been documented in the HPI. ROS Other: All systems not noted in ROS Statement are negative. Past Medical History Past Medical History: Asthma Additional Past Medical History / Comment(s): hydrocephalus History of Any Multi-Drug Resistant Organisms: None Reported Past Surgical History: Appendectomy Additional Past Surgical History / Comment(s): Septoplasty Past Anesthesia/Blood Transfusion Reactions: No Reported Reaction Past Psychological History: No Psychological Hx Reported Smoking Status: Vaper Past Alcohol Use History: Occasional Past Drug Use History: None Reported - Past Family History Mother Family Medical History: Asthma Additional Family Medical History / Comment(s): colitis, scoliosis, bipolar manic depressive, ADHD, anxiety General Exam Limitations: no limitations General appearance: alert, in no apparent distress Head exam: Present: atraumatic, normocephalic, normal inspection Eye exam: Present: normal appearance, PERRL, EOMI. Absent: scleral icterus, conjunctival injection, periorbital swelling ENT exam: Present: normal exam, mucous membranes moist Neck exam: Present: normal inspection. Absent: tenderness, meningismus, lymphadenopathy Respiratory exam: Present: normal lung sounds bilaterally. Absent: respiratory distress, wheezes, rales, rhonchi, stridor Cardiovascular Exam: Present: regular rate, normal rhythm, normal heart sounds. Absent: systolic murmur, diastolic murmur, rubs, gallop, clicks GI/Abdominal exam: Present: soft, normal bowel sounds. Absent: distended, tenderness, guarding, rebound, rigid Extremities exam: Present: normal inspection, full ROM, normal capillary refill. Absent: tenderness, pedal edema, joint swelling, calf tenderness Back exam: Present: normal inspection Neurological exam: Present: alert, oriented X3, CN II-XII intact Psychiatric exam: Present: normal affect, normal mood Skin exam: Present: warm, dry, intact, normal color. Absent: rash Course Vital Signs 09/11/21 09/11/21 05:00 06:32 Temperature 97.6 F Pulse Rate 64 61 Respiratory 18 16 Rate Blood Pressure 116/73 114/71 O2 Sat by Pulse 98 100 Oximetry - Reevaluation(s) Reevaluation #1: 09/11/21 06:10 Medical record is reviewed Reevaluation #2: 09/11/21 06:10 Patient symptoms are resolved Reevaluation #3: 09/11/21 06:52 Patient informed of results and questions answered Reevaluation #4: 09/11/21 06:52 Patient reassured continues to feel improved here in the ER Medical Decision Making - Medical Decision Making 18 female DEL with. Symptoms. No real specific pain just not feeling normal. Patient will try stool softener for bowel movements continue diet lab values are normal computed tomography scan is normal patient can be discharged home - Lab Data Result diagrams: 09/11/21 05:36 09/11/21 05:36 Lab Results 09/11/21 09/11/21 09/11/21 Range/Units 05:36 05:36 05:36 WBC 6.7 (3.8-10.6) k/uL RBC 4.75 (4.30-5.90) m/uL Hgb 14.2 (13.0-17.5) gm/dL Hct 42.3 (39.0-53.0) % MCV 89.1 (80.0-100.0) fL MCH 29.9 (25.0-35.0) pg MCHC 33.5 (31.0-37.0) g/dL RDW 12.0 (11.5-15.5) % Plt Count 195 (150-450) k/uL MPV 8.0 Neutrophils % 45 % Lymphocytes % 37 % Monocytes % 7 % Eosinophils % 7 % Basophils % 1 % Neutrophils # 3.0 (1.3-7.7) k/uL Lymphocytes # 2.5 (1.0-4.8) k/uL Monocytes # 0.5 (0-1.0) k/uL Eosinophils # 0.5 (0-0.7) k/uL Basophils # 0.0 (0-0.2) k/uL Sodium 138 (137-145) mmol/L Potassium 3.7 (3.5-5.1) mmol/L Chloride 103 (98-107) mmol/L Carbon Dioxide 27 (22-30) mmol/L Anion Gap 8 mmol/L BUN 12 (9-20) mg/dL Creatinine 0.79 (0.66-1.25) mg/dL Est GFR (CKD-EPI)AfAm >90 (>60 ml/min/1.73 sqM) Est GFR (CKD-EPI)NonAf >90 (>60 ml/min/1.73 sqM) Glucose 101 H (74-99) mg/dL Plasma Lactic Acid Sonny 1.3 (0.7-2.0) mmol/L Calcium 9.1 (8.4-10.2) mg/dL Total Bilirubin 0.5 (0.2-1.3) mg/dL AST 20 (17-59) U/L ALT 13 (4-49) U/L Alkaline Phosphatase 53 (38-126) U/L Total Protein 7.1 (6.3-8.2) g/dL Albumin 4.0 (3.5-5.0) g/dL Amylase 57 (30-110) U/L Lipase 51 (23-300) U/L Influenza Type A (PCR) (Not Detectd) Influenza Type B (PCR) (Not Detectd) RSV (PCR) (Not Detectd) SARS-CoV-2 (PCR) (Not Detectd) 09/11/21 Range/Units 05:36 WBC (3.8-10.6) k/uL RBC (4.30-5.90) m/uL Hgb (13.0-17.5) gm/dL Hct (39.0-53.0) % MCV (80.0-100.0) fL MCH (25.0-35.0) pg MCHC (31.0-37.0) g/dL RDW (11.5-15.5) % Plt Count (150-450) k/uL MPV Neutrophils % % Lymphocytes % % Monocytes % % Eosinophils % % Basophils % % Neutrophils # (1.3-7.7) k/uL Lymphocytes # (1.0-4.8) k/uL Monocytes # (0-1.0) k/uL Eosinophils # (0-0.7) k/uL Basophils # (0-0.2) k/uL Sodium (137-145) mmol/L Potassium (3.5-5.1) mmol/L Chloride (98-107) mmol/L Carbon Dioxide (22-30) mmol/L Anion Gap mmol/L BUN (9-20) mg/dL Creatinine (0.66-1.25) mg/dL Est GFR (CKD-EPI)AfAm (>60 ml/min/1.73 sqM) Est GFR (CKD-EPI)NonAf (>60 ml/min/1.73 sqM) Glucose (74-99) mg/dL Plasma Lactic Acid Sonny (0.7-2.0) mmol/L Calcium (8.4-10.2) mg/dL Total Bilirubin (0.2-1.3) mg/dL AST (17-59) U/L ALT (4-49) U/L Alkaline Phosphatase (38-126) U/L Total Protein (6.3-8.2) g/dL Albumin (3.5-5.0) g/dL Amylase (30-110) U/L Lipase (23-300) U/L Influenza Type A (PCR) Not Detected (Not Detectd) Influenza Type B (PCR) Not Detected (Not Detectd) RSV (PCR) Not Detected (Not Detectd) SARS-CoV-2 (PCR) Not Detected (Not Detectd) - Radiology Data Radiology results: report reviewed (Chest x-ray and CT abdomen and pelvis are negative for acute disease), image reviewed Disposition Clinical Impression: Postoperative pain Disposition: HOME SELF-CARE Condition: Good Instructions (If sedation given, give patient instructions): Pain Management After Surgery (DC) Is patient prescribed a controlled substance at d/c from ED?: No Referrals: None,Stated [Primary Care Provider] - 1-2 days
[2021-09-11 06:04] LABS: Basophils % (A) 1 %; Eosinophils # (A) 0.5 k/uL (0-0.7); Eosinophils % (A) 7 %; HCT 42.3 % (39.0-53.0); HGB 14.2 gm/dL (13.0-17.5); Lymphocytes # (A) 2.5 k/uL (1.0-4.8); Lymphocytes % (A) 37 %; MCH 29.9 pg (25.0-35.0); MCHC 33.5 g/dL (31.0-37.0); MCV 89.1 fL (80.0-100.0); Monocytes # (A) 0.5 k/uL (0-1.0); Monocytes % (A) 7 %; Neutrophils % (A) 45 %; Platelet Count 195 k/uL (150-450); RBC 4.75 m/uL (4.30-5.90); WBC 6.7 k/uL (3.8-10.6)
[2021-09-11 06:21] LABS: ALT 13 U/L (4-49); AST 20 U/L (17-59); African American GFR (CKD) >90 (>60 ml/min/1.73 sqM); Alkaline Phosphatase 53 U/L (38-126); Amylase 57 U/L (30-110); Anion Gap 8 mmol/L; Blood Urea Nitrogen 12 mg/dL (9-20); Calcium 9.1 mg/dL (8.4-10.2); Carbon Dioxide 27 mmol/L (22-30); Chloride 103 mmol/L (98-107); Glucose 101 mg/dL (74-99); Lipase 51 U/L (23-300); Non-African American GFR(CKD) >90 (>60 ml/min/1.73 sqM); Potassium 3.7 mmol/L (3.5-5.1); Sodium 138 mmol/L (137-145); Total Bilirubin 0.5 mg/dL (0.2-1.3); Total Protein 7.1 g/dL (6.3-8.2)
--- NOTE | 2021-09-11 06:24 | XR ---
EXAMINATION TYPE: XR chest 1V portable DATE OF EXAM: 09/11/2021 COMPARISON: 04/24/1962 HISTORY: Abdominal pain TECHNIQUE: FINDINGS: Heart and mediastinum are normal. Lungs are clear. Diaphragm is normal. Bony thorax appears normal. IMPRESSION: Normal chest. No change
--- NOTE | 2021-09-11 06:31 | CT ---
EXAMINATION TYPE: CT abdomen pelvis w con DATE OF EXAM: 09/11/2021 COMPARISON: 09/08/2021 HISTORY: post op appendectomy x3days ago. woke up with burning sensation in thighs, + fever, + chills CT DLP: 699.4 mGycm Automated exposure control for dose reduction was used. CONTRAST: Performed with IV Contrast, patient injected with 100 mL of Isovue 300. Images obtained from the diaphragm to the floor the pelvis with IV contrast. Lung bases are clear. No pleural effusion. Heart size is normal. No pericardial effusion. Liver and spleen stomach pancreas and gallbladder appear intact. The bile ducts are nondilated. Gallb ladder is contracted. There is no adrenal mass. Kidneys show satisfactory contrast opacification. There is no hydronephrosi s. Delayed images show normal renal excretion. Ureters are not dilated. There is no retroperitoneal a denopathy. The bladder distends smoothly. There is no internal hernia. There is no mesenteric edema. No ascites or free air. No bowel obstruction. There is no free fluid in the pelvis. No pelvic mass. The lumbar vertebrae have normal alignment. No compression fracture. Posterior elements are intact. B rossy pelvis is intact. The hip joints are intact. IMPRESSION: Nonacute abdomen and pelvis. There is clearing of the minimal free fluid in the pelvis compared to re cent exam. There is appendectomy.
[2021-09-11 06:34] VITALS: BP 114/71; PULSE 61; RESP 16
== END 2021-09-11 07:11 | disposition home or self-care (01) ==
LOC: EC 04:57
DX: G89.18 Other acute postprocedural pain (principal); J45.909 Unspecified asthma, uncomplicated; Z20.822 Contact with and (suspected) exposure to COVID-19; F17.209 Nicotine dependence, unspecified, with unspecified nicotine-induced disorders
CPT/HCPCS: 36415; 80053; 82150; 83605; 83690; 85025; 87636; 71045; 74177; 99285; 96374; 96375; J2405; J1885; Q9967

== ENCOUNTER 2021-11-05 05:19 | Emergency (ER) | payer OTHER ==
[2021-11-05 05:24] VITALS: BP 126/80; PULSE 60; RESP 18; TEMP 97.9
[2021-11-05] MEDS ORDERED: MAG HYDROX/AL HYDROX/SIMETH 30 ML, HYOSCYAMINE ELIXIR 10 ML, LIDOCAINE VISCOUS 2% 10 ML PO STA ×3 (05:45)
[2021-11-05] MEDS ORDERED: PANTOPRAZOLE 40 MG TABLET PO STA (05:45)
[2021-11-05] MEDS ORDERED: SUCRALFATE 1 GM TAB PO STA (05:45)
--- NOTE | 2021-11-05 05:47 | ED ---
ENT HPI - General Chief complaint: ENT Stated complaint: YADI Source: patient, RN notes reviewed, old records reviewed Mode of arrival: ambulatory Limitations: no limitations - History of Present Illness Initial comments: This is a 21-year-old male who presents her department for evaluation of difficulty swallowing, occasional, positive nausea. The symptoms all started after patient try to take her medication Significantly worse. Patient feels like something caught in his throat. Is able to eat and drink. No fevers, patient is handling secretions without difficulty no other complaints MD complaint: sore throat, difficulty swallowing -: days(s) Consistency: intermittent Improves with: none Worsens with: swallowing Associated Symptoms: pain with swallowing, sore throat - Related Data Previous Rx's Medication Instructions Recorded Amoxicillin/Potassium Clav 1 tab PO Q12HR 10 Days #20 tab 09/09/21 [Augmentin 875-125 Tablet] HYDROcodone/APAP 5-325MG [[place] 1 tab PO Q6HR PRN 3 Days #12 tab 09/09/21 5-325] Pantoprazole [Protonix] 40 mg PO DAILY #14 tab 11/05/21 Sucralfate [Carafate] 1 gm PO BID #28 tablet 11/05/21 Allergies Allergy/AdvReac Type Severity Reaction Status Date / Time No Known Allergies Allergy Verified 11/05/21 05:24 Review of Systems ROS Statement: Those systems with pertinent positive or pertinent negative responses have been documented in the HPI. ROS Other: All systems not noted in ROS Statement are negative. Past Medical History Past Medical History: Asthma Additional Past Medical History / Comment(s): hydrocephalus History of Any Multi-Drug Resistant Organisms: None Reported Past Surgical History: Appendectomy Additional Past Surgical History / Comment(s): Septoplasty Past Anesthesia/Blood Transfusion Reactions: No Reported Reaction Past Psychological History: No Psychological Hx Reported Smoking Status: Vaper Past Alcohol Use History: Occasional Past Drug Use History: None Reported - Past Family History Mother Family Medical History: Asthma Additional Family Medical History / Comment(s): colitis, scoliosis, bipolar manic depressive, ADHD, anxiety General Exam Limitations: no limitations General appearance: alert, in no apparent distress Head exam: Present: atraumatic, normocephalic, normal inspection Eye exam: Present: normal appearance, PERRL, EOMI. Absent: scleral icterus, conjunctival injection, periorbital swelling ENT exam: Present: normal exam, mucous membranes moist Neck exam: Present: normal inspection. Absent: tenderness, meningismus, lymphadenopathy Respiratory exam: Present: normal lung sounds bilaterally. Absent: respiratory distress, wheezes, rales, rhonchi, stridor Cardiovascular Exam: Present: regular rate, normal rhythm, normal heart sounds. Absent: systolic murmur, diastolic murmur, rubs, gallop, clicks GI/Abdominal exam: Present: soft, normal bowel sounds. Absent: distended, tenderness, guarding, rebound, rigid Extremities exam: Present: normal inspection, full ROM, normal capillary refill. Absent: tenderness, pedal edema, joint swelling, calf tenderness Back exam: Present: normal inspection Neurological exam: Present: alert, oriented X3, CN II-XII intact Psychiatric exam: Present: normal affect, normal mood Skin exam: Present: warm, dry, intact, normal color. Absent: rash Course Vital Signs 11/05/21 05:20 Temperature 97.9 F Pulse Rate 60 Respiratory 18 Rate Blood Pressure 126/80 O2 Sat by Pulse 99 Oximetry - Reevaluation(s) Reevaluation #1: 11/05/21 Medical record is reviewed Reevaluation #2: 11/05/21 Patient does feel improved Reevaluation #3: 11/05/21 Patient informed of results, questions answered Medical Decision Making - Medical Decision Making 21 female to the emergency department with significant sore throat difficulty swallowing after taking medication. Patient does have pill-induced esophagitis, inflamed esophagus here in the emergency room. Patient has no other findings and can be discharged home given symptomatic therapy Disposition Clinical Impression: Esophagitis, Pill esophagitis Disposition: HOME SELF-CARE Condition: Good Instructions (If sedation given, give patient instructions): Esophagitis (ED) Prescriptions: Sucralfate [Carafate] 1 gm PO BID #28 tablet Pantoprazole [Protonix] 40 mg PO DAILY #14 tab Is patient prescribed a controlled substance at d/c from ED?: No Referrals: None,Stated [Primary Care Provider] - 1-2 days Time of Disposition: 06:00
== END 2021-11-05 06:20 | disposition home or self-care (01) ==
LOC: EC 05:19
DX: K20.90 Esophagitis, unspecified without bleeding (principal); J45.909 Unspecified asthma, uncomplicated
CPT/HCPCS: 99283

== ENCOUNTER → 2021-11-27 | Outpatient (CLI) | payer OTHER ==
--- NOTE | 2021-11-28 08:18 | US ---
EXAMINATION TYPE: US thyroid st tissue head/neck DATE OF EXAM: 11/27/2021 COMPARISON: NONE CLINICAL HISTORY: R22.1 Localized swelling, mass and lump, neck. Dysphagia, worse on the right and wi th eating x 2 weeks GLAND SIZE: Right Lobe: 4.6 x 1.5 x 1.7 cm Overall Parenchyma: homogenous Left Lobe: 4.6 x 1.4 x 1.6 cm Overall Parenchyma: homogeneous Isthmus Thickness: 0.3 cm NODULES RIGHT: # of nodules measured on right: 0 LEFT: # of nodules measured on left: 1 - ovoid 1.3 x 0.7 x 0.8 cm hypoechoic solid nodule along t he inferior left thyroid lobe with smooth border. This is not taller than wide. No echogenic foci. ISTHMUS: # of nodules measured in the isthmus: 0 Bilateral neck scanned, no evidence of lymphadenopathy. IMPRESSION: * 1.3 cm nodule along the inferior left thyroid lobe. This may represent TI-RADS 4 thyroid nodule ve rsus enlarged parathyroid. Consider further evaluation with parathyroid hormone levels and follow-up ultrasound in one year.
== END | disposition home or self-care (01) ==
LOC: RADUSWWP 16:50
PROVIDERS: ATTEND Family Medicine
DX: E04.2 Nontoxic multinodular goiter (principal)
CPT/HCPCS: 76536